=== PATIENT | female | born 1990 | race Two or more races ===

== ENCOUNTER 2019-09-02 08:19 | Emergency (ER) | payer SELFPAY ==
[~2019-09-02] VITALS: Ht 162.6 cm; Wt 54.4 kg
[2019-09-02 08:23] VITALS: Ht 162.6 cm; Wt 54.4 kg
[2019-09-02 08:34] VITALS: BP 110/65
== END 2019-09-02 08:39 | disposition left against medical advice (07) ==
LOC: ED 08:19
DX: F45.8 Other somatoform disorders (principal)